=== PATIENT | female | born 1965 | race Caucasian/White ===

== ENCOUNTER → 2018-06-23 | Outpatient (CLI) | payer OTHER ==
--- NOTE | 2018-06-23 13:13 | PCVCIMAG ---
APPROVED REPORT Study performed: 06/23/2018 11:43:50 Exam: Stress Echocardiogram Indication: Hyperlipidemia, Hypertension, Tachycardia Patient Location: Echo lab Stress Nurse: Hilda Garcia RN Status: routine Ht: 5 ft 4 in HR: 92 bpm BP: 108/78 mmHg Rhythm: NSR Medical History Medical History: Hyperlipidemia, HTN Procedure The patient underwent an Exercise Stress Test using the Chandrakant Protocol. Blood pressure, heart rate, and EKG were monitored. An Echocardiogram was performed by cinetechnician in four stages in quad fashion. At peak stress, four selected images were obtained and placed side by side with resting images for comparison. Stress Test Details Stress Test: Exercise stress testing was performed using a Chandrakant protocol. HR Resting HR: 92 bpmMax Heart Rate (APMHR): 167 bpm Max HR Achieved: 179 bpmTarget HR (85% APMHR): 141 bpm % of APMHR: 107 Recovery HR: 110 bpm HR response to stress: Normal HR response to stress BP Resting BP: 108/78 mmHg Max BP: 140/78 mmHg Recovery BP: 110/80 mmHg BP response to stress: Normal blood pressure response to stress. ECG Resting ECG: Sinus Rhythm Stress ECG: SVT Recovery ECG: SVT Recovery ST Change: Sinus tachycardia Clinical Reason for Termination: Maximal effort Exercise duration: 6 min sec Highest Stage Achieved: Stage 2: 2.5 mph at 12% grade. Exercise capacity: 7.00 METs Overall Exercise Capacity for Age: Normal Pre-Stress Echo The resting Echocardiogram showed normal left ventricular contractility with an estimated Ejection Fraction of about 55-60%. Normal wall motion in all segments on baseline images. Post-Stress Echo The stress Echocardiogram showed normal left ventricular contractility with an estimated Ejection Fraction of about 60-65%. Normal augmentation of wall motion in all segments on post stress images. Clinical No clinical or ECG evidence for ischemia. Conclusion Clinical Response: Non-ischemic Exercise Capacity: Below Average Stress ECG Response: Non-ischemic Stress Echo Images: Non-ischemic The left ventricle is normal in size and wall thickness in both the rest and stress images. Other Information Study Quality: Good <Conclusion> The left ventricle is normal in size and wall thickness in both the rest and stress images.
== END | disposition home or self-care (01) ==
LOC: PCVCIMAG 13:00
PROVIDERS: ATTEND Internal Medicine Cardiovascular Disease
DX: I10 Essential (primary) hypertension (principal); R06.09 Other forms of dyspnea; R00.0 Tachycardia, unspecified; R07.9 Chest pain, unspecified; E78.5 Hyperlipidemia, unspecified
CPT/HCPCS: 93325; 93351